=== PATIENT | female | born 1985 | race Caucasian/White ===

== ENCOUNTER 2023-02-10 06:58 | Day surgery (SDC) | payer OTHER ==
[~2023-02-10] VITALS: Ht 160 cm; Wt 63.5 kg
[~2023-02-10 06:58] MED LIST: PREN1TAB49 PO
[2023-02-10 07:10] VITALS: BP_SYST 128; PULSE 72; RESP 18; TEMP 97.8; O2SAT 98
[2023-02-10 07:39] LABS: BILIRUBIN,URINE NEGATIVE (NEGATIVE); CLARITY/URINE Clear (CLEAR); COLOR,URINE YELLOW (YELLOW); GLUCOSE,URINE NEGATIVE (NEGATIVE); NITRITE, URINE NEGATIVE (NEGATIVE); PROTEIN URINE NEGATIVE (NEGATIVE); UROBILINOGEN,URINE 0.2 (0.2-1.0)
[2023-02-10 07:40] LABS: BLOOD, URINE TRACE (NEGATIVE); KETONES,URINE NEGATIVE (NEGATIVE); LEUKOCYTE ESTERASE ,URINE NEGATIVE (NEGATIVE)
[2023-02-10 07:52] LABS: BASOPHILS # (AUTO) 0.1 K/uL (0.0-0.2); BASOPHILS % (AUTO) 0.7 % (0.0-2.0); EOSINOPHILS # (AUTO) 0.1 K/uL (0.0-0.4); EOSINOPHILS % (AUTO) 1.5 % (0.0-4.0); HEMATOCRIT 36.1 % (36-48); LYMPHOCYTES # (AUTO) 2.5 K/uL (1.0-5.5); LYMPHOCYTES % (AUTO) 29.9 % (20.5-51.5); MEAN CORPUSCULAR HEMOGLOBIN 30 pg (27-31); MEAN CORPUSCULAR HGB CONC 33 % (32-36); MEAN CORPUSCULAR VOLUME 91 fL (79.0-98.0); MONOCYTES # (AUTO) 0.5 K/uL (0.0-1.0); MONOCYTES % (AUTO) 5.5 % (1.7-9.3); NEUTROPHILS # (AUTO) 5.3 K/uL (1.8-7.7); NEUTROPHILS % (AUTO) 62.4 % (40.0-70.0); PLATELET COUNT (AUTO) 246 K/uL (130-430); RED BLOOD CELL COUNT(AUTO) 3.96 MIL/uL (4.2-6.2); RED CELL DISTRIBUTION WIDTH 12.3 % (9.0-15.0); WHITE BLOOD COUNT (AUTO) 8.5 K/uL (4.8-10.8)
[2023-02-10 08:04] LABS: BACTERIA,URINE None Seen /HPF (None Seen); WBC,URINE NONE SEEN /HPF (0-3)
[2023-02-10 08:14] LABS: PROTHROMBIN TIME 10.2 SECS (9.5-12.5)
[2023-02-10] MEDS ORDERED: ACETAMINOPHEN 500 MG TABLET PO ONE (08:15)
[2023-02-10 11:19] VITALS: O2SAT 99
[2023-02-10] MEDS ORDERED: METOCLOPRAMIDE HCL 10 MG/2 ML VIAL IVP PRN (11:45)
[2023-02-10] MEDS ORDERED: KETOROLAC TROMETHAMINE 30 MG VIAL IVP SCH (11:45)
[2023-02-10] MEDS ORDERED: MIDAZOLAM HCL 2 MG/2 ML VIAL (VERSED) IVP PRN (11:45)
[2023-02-10] MEDS ORDERED: MEPERIDINE HCL/PF 25 MG/ML DISP.SYRIN IVP PRN (11:45)
[2023-02-10] MEDS ORDERED: LR 1,000 ML IV SCH (11:45)
[2023-02-10] MEDS ORDERED: ONDANSETRON HCL 4 MG/2 ML VIAL IVP PRN (11:45)
[2023-02-10] MEDS ORDERED: HYDROmorphone 1 MG/ML INJ. CARTRIDGE IVP PRN (11:45)
[2023-02-10] MEDS ORDERED: ACETAMINOPHEN I.V. 1000 MG 100 ML IV ONE (11:59)
[2023-02-10] MEDS ORDERED: KETOROLAC TROMETHAMINE 30 MG VIAL ONE ×2 (12:13→14:21)
[2023-02-10] MEDS ORDERED: MIDAZOLAM HCL 5 MG/ML VIAL (VERSED) IV ONE (12:13)
[2023-02-10] MEDS ORDERED: OXYTOCIN 10 UNIT/ML VIAL ONE (12:13)
[2023-02-10] MEDS ORDERED: CEFAZOLIN 2 GM IVPB PREMIX 50 ML IV ONE (12:13)
[2023-02-10] MEDS ORDERED: ONDANSETRON HCL 4 MG/2 ML VIAL ONE (12:13)
[2023-02-10] MEDS ORDERED: fentaNYL CITRATE/PF 100 MCG/2 ML AMP ONE (12:13)
[2023-02-10] MEDS ORDERED: DEXAMETHASONE SOD PHOSPHATE 4 MG/ML VIAL ONE (12:13)
[2023-02-10] MEDS ORDERED: PROPOFOL 200MG/ 20ML VIAL (DIPRIVAN) IV ONE (12:13)
[2023-02-10] MEDS ORDERED: LR 1,000 ML IV.SOLN IV ONE (12:13)
[2023-02-10] MEDS ORDERED: MEPERIDINE 100 MG INJ. 100 MG/ML VIAL ONE (12:13)
[2023-02-10] MEDS ORDERED: WATER FOR IRRIGATION,STERILE 1,000 ML IRRIG.SOLN IR ONE (12:13)
[2023-02-10] MEDS ORDERED: SEVOFLURANE 15 MIN GAS INH ONE (12:13)
[2023-02-10] MEDS ORDERED: MIDAZOLAM HCL 2 MG/2 ML VIAL (VERSED) ONE (12:14)
[2023-02-10] MEDS ORDERED: HYDROmorphone 1 MG/ML INJ. CARTRIDGE ONE (12:53)
[2023-02-10] MEDS: HYDROmorphone 1 MG/ML INJ. CARTRIDGE IVP PRN ×2 (12:55→13:00)
[2023-02-10 16:25] VITALS: BP_SYST 126; PULSE 89; RESP 20
== END 2023-02-10 11:30 | disposition home or self-care (01) ==
LOC: SED 06:58 → SDS 10:43
PROVIDERS: ATTEND Specialist
DX: O03.4 Incomplete spontaneous abortion without complication (principal); Z79.01 Long term (current) use of anticoagulants
CPT/HCPCS: 59812; 81000; 84702; 85025; 85610; 85730; 86900; 86901; 36415; 76801; 99285; 88305; J0690; J1100; J1885; J2250; J3465; J2405; J2590; J2704; J3010; J1170; J2175; J7120; J0131; 76802